=== PATIENT | female | born 1990 | race Caucasian/White ===

== ENCOUNTER 2017-01-16 15:51 | Emergency (ER) | payer OTHER ==
[~2017-01-16] VITALS: Ht 162.6 cm; Wt 55.8 kg
[2017-01-16] MEDS ORDERED: BCP (16:11)
[2017-01-16] MEDS ORDERED: ALBU17IN2 INH (16:11)
[2017-01-16 17:34] LABS: CONTROL LINE HCG INT CTR LINE PRESENT
[2017-01-16 17:42] LABS: METHADONE URINE NEGATIVE (NEGATIVE)
[2017-01-16 17:43] LABS: MEAN CORPUSCULAR HEMOGLOBIN 30.9 pg (27.0-33.0); MEAN CORPUSCULAR VOLUME 90.7 fl (80.0-96.0); RED CELL DISTRIBUTION WIDTH 11.6 % (11.5-14.5); WHITE BLOOD COUNT 8.2 K/mm3 (4.0-10.0)
[2017-01-16 17:55] LABS: ALBUMIN 3.8 GM/DL (3.2-5.2); ALBUMIN/GLOBULIN RATIO 1.06 (1.00-1.93); ALKALINE PHOSPHATASE 45 U/L (45-117); ALT/SGPT 19 U/L (12-78); ANION GAP 6 MEQ/L (8-16); AST/SGOT 14 U/L (15-37); BILIRUBIN,DIRECT 0.1 MG/DL (0.0-0.2); BILIRUBIN,TOTAL 0.3 MG/DL (0.2-1.0); BLOOD UREA NITROGEN 6 MG/DL (7-18); CARBON DIOXIDE LEVEL 26 MEQ/L (21-32); CHLORIDE LEVEL 106 MEQ/L (98-107); CREATININE FOR GFR 0.81 MG/DL (0.55-1.02); GLOMERULAR FILTRATION RATE > 60.0 (>60); GLUCOSE, FASTING 94 MG/DL (70-105); POTASSIUM SERUM 4.3 MEQ/L (3.5-5.1); SODIUM LEVEL 138 MEQ/L (136-145); TOTAL PROTEIN 7.4 GM/DL (6.4-8.2)
[2017-01-16 18:31] VITALS: BP 120/87
== END 2017-01-16 18:39 | disposition home or self-care (01) ==
LOC: M ED 17:29
DX: F60.3 Borderline personality disorder (principal)
CPT/HCPCS: 80048; 80076; 80306; 84443; 84703; 85027; 99284; G0480

== ENCOUNTER → 2017-12-08 | Outpatient (CLI) | payer OTHER | LOC: M RAD 16:03 | DX: J32.4 Chronic pansinusitis (principal) | CPT/HCPCS: 70486 ==

== ENCOUNTER → 2018-02-26 | Outpatient (CLI) | payer OTHER | LOC: M RAD 12:35 | DX: J32.4 Chronic pansinusitis (principal) | CPT/HCPCS: 70486 ==

== ENCOUNTER → 2018-05-11 | Day surgery (SDC) | payer OTHER ==
[~2018-05-11] MED LIST: GLYCOPYRROLATE INJ 0.2 MG/ML 2 ML VIAL As Ordered; LIDOCAINE 2% INJ 100 MG/5 ML SDV (FOR ANES.) As Ordered; LIDOCAINE W/EPINEPHRINE 1% 20ML VIAL As Ordered; METHYLENE BLUE 0.5% (5MG/ML) 10 ML AMP (PROVAYBLUE)(Q9968 PER 1MG) As Ordered; MIDAZOLAM INJ 2 MG/2 ML VIAL (J2250) As Ordered; NEOSTIGMINE 10 MG/10 ML VIAL (J2710) As Ordered; ONDANSETRON 4MG/2ML VIAL (J2405) As Ordered; OXYMETAZOLINE NASAL SPRAY (AFRIN) As Ordered; PROPOFOL 200 MG/20 ML VIAL As Ordered; ROCURONIUM BROMIDE 50 MG/5 ML VIAL As Ordered; SODIUM CHLORIDE 0.9% NASAL GEL 15GM (AYR) As Ordered; dexameTHASONE 4 MG/ML 1ML VIAL (J1100) As Ordered; fentaNYL 250 MCG/5 ML INJECTION (J3010) As Ordered
[2018-05-11 09:58] LABS: CONTROL LINE UCG INT CTR LINE PRESENT; URINE PREG TEST NEGATIVE (NEGATIVE)
[2018-05-11] MEDS: LR 1,000 ML IV ×2 (10:20)
[2018-05-11] MEDS: SCOPOLAMINE 1MG TRANSDERMAL PATCH TOP ×2 (11:20)
== END | disposition home or self-care (01) ==
LOC: M SDC 09:28
DX: J34.2 Deviated nasal septum (principal); J32.4 Chronic pansinusitis; Z53.09 Procedure and treatment not carried out because of other contraindication
CPT/HCPCS: 84703

== ENCOUNTER 2018-06-08 08:02 | Day surgery (SDC) | payer OTHER ==
[~2018-06-08 08:02] MED LIST changes: +LIDOCAINE 1% MDV 20ML VIAL SC; -LIDOCAINE W/EPINEPHRINE 1% 20ML VIAL As Ordered; -METHYLENE BLUE 0.5% (5MG/ML) 10 ML AMP (PROVAYBLUE)(Q9968 PER 1MG) As Ordered; -OXYMETAZOLINE NASAL SPRAY (AFRIN) As Ordered; -SODIUM CHLORIDE 0.9% NASAL GEL 15GM (AYR) As Ordered; +fentaNYL 100 MCG/2 ML INJECTION (J3010) As Ordered; -fentaNYL 250 MCG/5 ML INJECTION (J3010) As Ordered
[2018-06-08] MEDS: LR 1,000 ML IV ×2 (08:50)
[2018-06-08 08:55] LABS: CONTROL LINE UCG INT CTR LINE PRESENT; URINE PREG TEST NEGATIVE (NEGATIVE)
[2018-06-08] MEDS: SCOPOLAMINE 1MG TRANSDERMAL PATCH TOP ×2 (10:20)
[2018-06-08] MEDS: ALBUTEROL SULFATE 2.5 MG/0.5 ML INH NEB SOLN INH ×4 (10:20→13:38)
[2018-06-08] MEDS ORDERED: ALBUTEROL SULFATE 2.5 MG/0.5 ML INH NEB SOLN As Ordered ×2 (10:20)
[2018-06-08] MEDS: SODIUM CHLORIDE 0.9% NASAL GEL 15GM (AYR) As Ordered ×2 (10:38)
[2018-06-08] MEDS: OXYMETAZOLINE NASAL SPRAY (AFRIN) As Ordered ×4 (10:39→12:57)
[2018-06-08] MEDS: LIDOCAINE W/EPINEPHRINE 1% 20ML VIAL As Ordered ×2 (11:30)
[2018-06-08] MEDS: METHYLENE BLUE 0.5% (5MG/ML) 10 ML AMP (PROVAYBLUE)(Q9968 PER 1MG) As Ordered ×2 (11:40)
[2018-06-08] MEDS ORDERED: HYDROmorphone HCL 2 MG/ML 1ML VIAL (J1170) As Ordered ×2 (12:24)
[2018-06-08] MEDS ORDERED: PERCOCET 5MG/325MG TAB PO ×2 (13:45)
[2018-06-08] MEDS ORDERED: LR 1,000 ML IV ×2 (13:45)
[2018-06-08] MEDS ORDERED: fentaNYL 100 MCG/2 ML INJECTION (J3010) IV ×2 (13:45)
[2018-06-08] MEDS: ONDANSETRON 4MG/2ML VIAL (J2405) IV ×2 (14:12)
== END 2018-06-08 15:31 | disposition home or self-care (01) ==
LOC: M SDC 08:02
DX: J34.2 Deviated nasal septum (principal); J32.4 Chronic pansinusitis; J33.0 Polyp of nasal cavity; K21.9 Gastro-esophageal reflux disease without esophagitis; J45.909 Unspecified asthma, uncomplicated; Z88.2 Allergy status to sulfonamides; Z79.899 Other long term (current) drug therapy; F41.9 Anxiety disorder, unspecified; F32.9 Major depressive disorder, single episode, unspecified
CPT/HCPCS: 30520